=== PATIENT | female | born 1950 | race Caucasian/White ===

== ENCOUNTER 2023-11-30 21:23 | Observation (INO) | payer MEDICARE, SELFPAY ==
[2023-11-30 17:14] VITALS: BP 150/99
[2023-11-30 18:31] VITALS: BP 119/76
--- NOTE | 2023-11-30 19:36 | ED.CVA ---
History of Present Illness
General
Chief Complaint: CVA/TIA Symptoms
Source: patient
Exam Limitations: none
Time Seen by Provider: 11/30/23 18:58
Nursing documentation reviewed up to this point in time: agreed with
Onset of Stroke Symptoms
Onset of symptoms known: Yes
Date of onset of symptoms: 11/28/23
Time pt last seen normal is known: No
Travel History
Have you had any contact with someone who has COVID-19?: No
Do you have any symptoms of coronavirus? Fever > 100 degrees, chills, cough, shortness of breath, sore throat, loss of taste or smell, muscle aches, or headache?: No
History of Present Illness
History of Present Illness:
The patient is a pleasant 73-year-old female with a past medical history of high blood pressure and high cholesterol. Patient reports she is here because she is very worried that she is having multiple mini strokes. Patient reports that 13 days
ago, she had sudden onset of numbness of her leg and foot. During that time she also felt lightheaded and short of breath. Patient reports that the episode went away completely. However, 2 days ago, she reports that she was driving home from [facility]
[place] and developed similar symptoms such as lightheadedness, shortness of breath, and had numbness in her left arm. Patient reports she also had a weird sensation in her mouth and tongue. Patient reports that she was able to drive herself to an
emergency department in [place]. In the emergency department, she underwent lab work including 2 troponins that came back normal. In addition, she had a CT head which showed chronic ischemia in the brain. Patient reports that she tried to get
in touch with her doctor to set up an MRI and carotid ultrasound but was unable to do so. Patient is extremely nervous that she is going to keep having strokes. The patient denies any current symptoms such as weakness, numbness, vision changes,
shortness of breath or lightheadedness.
Review of Systems
Review of Systems
Allergies reviewed?: Yes
All Other Systems: ROS reviewed and negative except as documented in HPI and ROS
Constitutional: Reports no symptoms
EENT: Reports no symptoms
Respiratory: Reports trouble breathing
Cardiac: Reports no symptoms
ABD/GI: Reports no symptoms
: Reports no symptoms
Musculoskeletal: Reports no symptoms
Skin: Reports no symptoms
Neurological: Reports dizzy and numbness
Endocrine: Reports no symptoms
Hematologic/Lymphatic: Reports no symptoms
Psychiatric: Reports no symptoms
Phy Exam
Physical Exam
Physical Exam:
Physical Exam
General: no apparent distress, not acutely ill
Neck: supple. no meningeal signs. normal posterior pharynx
Heart: s1/s2 regular rate and rhythm, no murmur. equal radial pulses.
Lungs: no acute respiratory distress. clear bilaterally
Abdomen: normal bowel sounds. not tender. no CVAT
Neuro: alert and oriented. no focal neurological deficits. Extraocular muscles intact. 5 out of 5 strength in all extremities. No drift. Cranial nerves equal and symmetric bilaterally
Skin: no rash
Psychiatric: well kept. interactive and cooperative
Extremities: no edema. no calf tenderness. negative homans. good distal pulses
Course
Orders/Labs/Results
Orders:
Orders
11/30/23 19:36
Electrocardiogram (*1) Urgent
Reason for Study: TIA/Stroke
EKG- Treatment ONCE
11/30/23 20:10
Complete Blood Count/With Diff Urgent
Comprehensive Metabolic Panel Urgent
11/30/23 20:50
CT Head W/o Iv Contrast Urgent
Comment:
Reason For Exam: left arm numbness
11/30/23 20:53
Admit/Transfer Patient As Directed
Co-Sign Provider:
Level of Care: Observation services
Assign to:: Telemetry
Physician / Group: Dickson
Diagnosis: Recurrent Left Sided Numbness
Reason for Telemetry: CVA/TIA
Date to Stop Telemetry: 12/03/23
Time to Stop Telemetry: 11:00
Code Status As Directed
Resuscitation Status: Full Code
11/30/23 22:00
Flush (0.9% Sodium Chloride) [Flush (Nss)] See Dose Instructions IV PER PROTOCOL
11/30/23 22:28
Acetaminophen [Tylenol/Feverall] 650 mg RECTAL Q4HPRN PRN
Acetaminophen [Tylenol] 650 mg PO Q4HPRN PRN
11/30/23 22:28
Case Management Consult ONCE
Case Management Consult: Discharge Planning
Comment: stroke/tia
DIETARY CONSULT Routine
Reason for Consult: stroke/TIA
On Site Coordinator Routine
MA [place] Routine
Comment:
Reason For Exam: stroke/TIA
Recent pill cam endoscopy?: No
MA Neck With Contrast Routine
Comment:
Reason For Exam: stroke/TIA
Recent pill cam endoscopy?: No
MR Brain Without Contrast Routine
Comment:
Reason For Exam: stroke/TIA
Recent pill cam endoscopy?: No
Activity As Directed
Activity Level: Out of Bed-Early Mobility
NIH Stroke Scale As Directed
Directions: Per protocol
Comment: every shift and with any change in condition or mental status
Neurological Checks As Directed
Frequency: q4h
Additional Instructions:: q4h x 24h upon admission to the floor, then qshift & with any change in condition
and mental status
Patient Education As Directed
Type: Stroke education packet
Comment: provide to patient and family
Pneumatic Compression Sleeves As Directed
Type: Knee high
Vital Signs As Directed
Frequency: Per unit guidelines
Ot Eval And Treat Routine
Pt Eval And Treat Routine
Activity Level: Out of Bed-Early Mobility
Speech Therapy Eval & Treat Routine
DX Deep Vein Thrombosis Video Routine
12/01/23 06:00
Basic Metabolic Panel IN AM
Cardiovascular Evaluation IN AM
Complete Blood Count/No Diff IN AM
Glycohemoglobin (HgbA1c) IN AM
Magnesium IN AM
12/01/23 08:00
Amlodipine [Norvasc] 5 mg PO DAILY
Aspirin Low Dose EC [Aspir Low (Enteric Coated)] 81 mg PO DAILY
Clopidogrel Bisulfate [Plavix] 75 mg PO DAILY
Lisinopril [Zestril] 20 mg PO BID
12/01/23 18:00
Atorvastatin [Lipitor] 40 mg PO QPM
12/03/23 11:00
DC Protocol for Telemetry ONCE
Abnormal Lab Results
11/30/23
20:10
MCH 32.7 H pg
(27.0-31.0)
Monocytes % 9.6 H %
(1.7-9.3)
11/30/23 20:10
11/30/23 20:10
Vital Signs
Initial and Last Documented VS:
Initial Vital Signs
Temp Pulse Resp BP Pulse Ox
98.1 F 82 20 150/99 98
11/30/23 17:14 11/30/23 17:14 11/30/23 17:14 11/30/23 17:14 11/30/23 17:14
Last Documented Vital Signs
Temp Pulse Resp BP Pulse Ox
97.7 F 76 20 145/74 94
11/30/23 22:36 11/30/23 22:36 11/30/23 22:36 11/30/23 22:36 11/30/23 22:36
MDM/Problems Addressed
Differential Diagnosis Includes:
TIA, cardiac arrhythmia, anemia, orthostatic hypotension
MDM/Problems Addressed:
Patient presents with intermittent episodes of numbness, shortness of breath and lightheadedness
Chronic conditions affecting care:
Given patient has a history of high blood pressure and high cholesterol, she is at increased risk of having a stroke or TIA
Chronic conditions affecting care: HTN
Acute Exacerbation and/or Progression of Chronic Illness:
Patient is acutely hypertensive
Acute Exacerbation and/or Progression of Chronic Illness: HTN
*Pulse Oximetry
Patient hypoxic: no
*EKG
Interpreted by ED Provider?: Yes
Interpretation: abnormal
Comparison EKG: no comparison EKG present
Rate: normal
Rhythm: sinus
[place]: normal axis
Interval: normal interval
QRS Pattern: normal QRS
Ischemia: non-specific ST changes
*[employer] Lay Up Worker Interpretation
Rate: normal
Interpretation: normal
Rhythm: sinus
*Critical Care Note
Total Time (30-74mins, 75-104mins- exclusive of procedures): Not Applicable
ED Attending Note
-
Portions of this chart may have been created with voice recognition software.� Occasional wrong word or��sound alike� substitutions may have occurred due to the inherent limitations of voice recognition software.
Discharge Plan
Departure
Patient Disposition: Admit
Date of Disposition: 11/30/23
Time of Disposition: 19:41
Admit to: Telemetry
Presentation/result/management discussed w/ accepting MD/DO: Hospitalist
Patient with high blood pressure during this ER visit?: Yes
Condition: Good
Covid-19: Not Applicable
Discharge Problem:
TIA (transient ischemic attack)
Interventions
Interventions:
*Risk Screen - Suicide Last Done: 11/30/23 19:58
*General Assessment Last Done: 11/30/23 19:58
*Neglect/Abuse Screening Last Done: 11/30/23 19:58
ED- Fall Risk Assessment Last Done: 11/30/23 22:12
*ED COVID-19 Vaccine History Last Done: 11/30/23 19:58
*Nursing Disposition Last Done: 11/30/23 22:12
ED- Pulmonary Assessment Last Done: 11/30/23 19:56
ED- Neurological Assessment Last Done: 11/30/23 21:51
ED- Cardiac Assessment Last Done: 11/30/23 19:56
ED Swallowing Screen Last Done: 11/30/23 21:51
Discharge Date and Time
Discharge Date/Time: 11/30/23 22:30
[2023-11-30 20:21] LABS: % Eosinophils 2.7 % (0-6); % Immature Granulocytes 0.2 % (0-0.5); % Monocytes 9.6 % (1.7-9.3); % Neutrophils 48.5 % (42.2-75.2); Absolute Basophils 0.1 10^3/uL (0-0.2); Absolute Eosinophils 0.1 10^3/uL (0-0.7); Absolute Monocytes 0.5 10^3/uL (0.1-0.6); Absolute Neutrophils 2.5 10^3/uL (1.4-6.5); Hematocrit 41.4 % (37.0-47.0); Mean Corp Hgb Conc. 33.8 g/dL (33.0-37.0); Mean Corpuscular Hgb 32.7 pg (27.0-31.0); Mean Corpuscular Volume 96.7 fL (81.0-99.0); Mean Platelet Volume 9.5 fL (7.4-10.4); Nucleated Red Blood Cells % 0 %; Platelet Count 216 10^3/uL (130-400); Red Blood Cell Count 4.28 10^6/uL (4.20-5.40); Red Cell Dist. Width 12.6 % (11.5-14.5); White Blood Cell Count 5.2 10^3/uL (4.8-10.8)
[2023-11-30 20:31] LABS: ALT (SGPT) 17 U/L (0-35); AST (SGOT) 24 U/L (14-36); Albumin 4.1 g/dl (3.5-5.0); Alkaline Phosphatase 93 U/L (38-126); Blood Urea Nitrogen 13 mg/dl (7-17); Calcium 9.3 mg/dl (8.4-10.2); Carbon Dioxide 26 mmol/L (22-30); Chloride 104 mmol/L (98-107); Glucose 95 mg/dl (70-99); Potassium 3.8 mmol/L (3.5-5.1); Sodium 138 mmol/L (135-145); Total Bilirubin 0.5 mg/dl (0.2-1.3); Total Protein 6.6 g/dl (6.3-8.2); eGFR > 60.00
--- NOTE | 2023-11-30 21:15 | HPS.HSE ---
Addendum entered and electronically signed by Anatoly Forman DO 11/30/23 22:52:
Patient seen and examined independently. Agree with findings and plan as set forth by Verónica Walton PA-C.
Patient is a 73y F with PMH significant for hypertension who presents to ED for evaluation of transient numbness / tingling over the past month. Her initial episode was on 11/16 and her most recent episode was 11/27. At that time patient presented
to an ED in [place] for evaluation. CT head was done at that time and her symptoms resolved. She was advised to follow-up with her PCP and complete outpatient work-up including MRI and CUS. Patient was started on ASA 81mg daily.
She has had no additional symptoms since that time. Unfortunately, she has not been able to get in contact with her PCP or schedule these recommended tests.
Concerned with possible recurrent symptoms and need for prompt testing, patient presented to the ED for evaluation.
Ass:
Numbness / Tingling
Possible CVA / TIA
Benign Hypertension
Plan:
Observe overnight for further evaluation and treatment.
Add Plavix and statin. Continue ASA.
MRI brain in the AM.
Neuro evaluation.
Consider additional testing if warranted.
Monitor for any new / recurrent symptoms.
Original Note:
Family Physician
-
Family Physician: Tai Moss
Chief Complaint
-
Left Sided Numbness
History of Present Illness
This is a 73 year old female with past medical history of hypertension who presents to the emergency department with numbness and tingling on her left side. The patient reports an episode of left leg numbness, tingling, and left foot swelling on
11/17/23 that resolved spontaneously after about an hour. She also reports another episode on 11/28/23 of left arm numbness and tingling, lightheadedness, shortness of breath, and palpitations prompting her to present to an emergency department in [facility]
[place] where she had imaging including ultrasound of the left leg, chest x-ray, and head CT. Patient notes she was discharged after being ruled out for an PR, and had a CT scan that was negative intracranial hemorrhage. She was told she had 2 TIAs
and to start 81mg Aspirin daily. She was instructed to get an MRI and carotid ultrasound but was unable to get in touch with her primary care, prompting her to present to the emergency department today. The patient denies numbness, tingling,
weakness, speech difficulties, visual changes, chest pain, and palpitations at this time.
Medical History
Past Medical History
Past Medical History: Reports Other
Additional Past Medical History:
Essential Hypertension
Glaucoma
Past Surgical History: Reports
Social History
Tobacco: Non-smoker
Alcohol: Occasional
Personal:
Living: With Family
Family History
Family History: Not pertinent
Allergies / Home Medications
Allergies reflects when Allergies were last updated in [facility].
Home Medications with original date entered in [facility]
Allergy/Medication List:
Allergies
Allergy/AdvReac Type Severity Reaction Status Date / Time
Cephalosporins Allergy Unknown Unverified 11/30/23 17:21
erythromycin base Allergy Unknown Unverified 11/30/23 17:21
penicillin G Allergy Unknown Unverified 11/30/23 17:21
Penicillins Allergy Unknown Unverified 11/30/23 17:21
Home Medications
amlodipine 5 mg tablet 5 mg PO DAILY 11/30/23
aspirin 81 mg tablet,delayed release 81 mg PO DAILY 11/30/23
calcium carbonate 500 mg PO DAILY 11/30/23
cholecalciferol (vitamin D3) 25 mcg (1,000 unit) tablet 25 mcg PO DAILY 11/30/23
coenzyme Q10 100 mg capsule (Co Q-10) 100 mg PO DAILY 11/30/23
dorzolamide-timolol (PF) 2 %-0.5 % eye drops in a dropperette 1 drp BOTH EYES BID 11/30/23
latanoprost 0.005 % eye drops 1 drp RIGHT EYE HS 11/30/23
lisinopril 20 mg tablet 20 mg PO BID 11/30/23
multivitamin 1 tab PO DAILY 11/30/23
omega 4-[id number]-mrv-fish oil 1,000 mg (120 mg-180 mg) capsule (Fish Oil) 1 cap PO DAILY 11/30/23
vitamin B complex 1 tab PO DAILY 11/30/23
Review of Systems
-
A 12 point ROS was completed and negative except as noted: Yes
Constitutional: Denies Fever or Chills
Respiratory: Denies Cough or Trouble Breathing
Cardiac: Denies Chest Pain or Palpitations
Physical Exam
Vital Signs
Vital Signs
Temp Pulse Resp BP Pulse Ox
98.1 F 73 17 119/76 97
11/30/23 17:14 11/30/23 19:45 11/30/23 19:45 11/30/23 18:31 11/30/23 19:56
Physical Exam
General: Comfortable and Conversant
HEENT: Anicteric and Moist mucous membranes
Respiratory: Clear and Non Labored Respirations
Cardiac: S1/S2 and Regular Rhythm
GI: Soft and Non Tender
Musculoskeletal: No Clubbing, No Cyanosis and No Edema
Skin: Warm and Dry
Neuro: Awake, Alert, Oriented and Nonfocal/grossly intact
Psych: Anxious
Laboratory Results
-
11/30/23 20:10
11/30/23 20:10
Laboratory Results
Total Bilirubin 0.5 mg/dl (0.2-1.3) 11/30/23 20:10
AST 24 U/L (14-36) 11/30/23 20:10
ALT 17 U/L (0-35) 11/30/23 20:10
Alkaline Phosphatase 93 U/L (38-126) 11/30/23 20:10
Data Reviewed
-
Lab Data: Labs Reviewed by me
Old Records: Reviewed
Impression/Plan
-
Recurrent Left Sided Numbness, possible TIA
-Consult Neurology
-Monitor on Telemetry
-Continue Aspirin and Plavix
-Check Brain MRI with Head/Neck MRA
-Check Lipid Panel and HgbA1c
Essential Hypertension
-Continue amlodipine and lisinopril
Hyperlipidemia
-Start Atorvastatin
DVT proph: SCDs
Code Status: Full Code
[2023-11-30 22:36] VITALS: BP 145/74
[2023-11-30 22:37] VITALS: BMI 29.0
--- NOTE | 2023-11-30 23:00 | PTCARENOTE ---
no delay received. aaox3. [facility] o. vss. nsr. plan of care updated. call parrish in reach. will monitor.
[2023-12-01 03:43] VITALS: BP 114/73
[2023-12-01 06:28] LABS: Hematocrit 41.6 % (37.0-47.0); Hemoglobin 13.9 g/dL (12.0-16.0); Mean Corp Hgb Conc. 33.4 g/dL (33.0-37.0); Mean Corpuscular Hgb 32.6 pg (27.0-31.0); Mean Corpuscular Volume 97.4 fL (81.0-99.0); Mean Platelet Volume 9.5 fL (7.4-10.4); Platelet Count 211 10^3/uL (130-400); Red Blood Cell Count 4.27 10^6/uL (4.20-5.40); Red Cell Dist. Width 12.5 % (11.5-14.5); White Blood Cell Count 5.3 10^3/uL (4.8-10.8)
[2023-12-01 07:41] LABS: Blood Urea Nitrogen 12 mg/dl (7-17); Calcium 9.2 mg/dl (8.4-10.2); Carbon Dioxide 23 mmol/L (22-30); Chloride 108 mmol/L (98-107); Estimated Creatinine Clearance 92 ml/min; Glucose 92 mg/dl (70-99); HDL Cholesterol 52 mg/dl; LDL Cholesterol, Calculated 190 mg/dl; Magnesium 1.9 mg/dl (1.6-2.3); Potassium 3.6 mmol/L (3.5-5.1); Sodium 140 mmol/L (135-145); Total Cholesterol 305 mg/dl (50-199); Triglyceride 315 mg/dl (10-149); Very Low Density Lipoprotein 63 mg/dl (0-30); eGFR > 60.00
[2023-12-01] MEDS: NORVASC 5 MG PO (07:46)
[2023-12-01] MEDS: PLAVIX 75 MG PO (07:46)
[2023-12-01] MEDS: ZESTRIL 20 MG PO (07:46)
[2023-12-01] MEDS: ASPIR LOW (ENTERIC COATED) 81 MG PO (07:46)
[2023-12-01 07:59] VITALS: BP 122/74
--- NOTE | 2023-12-01 08:37 | CON.NEURO4 ---
Addendum entered and electronically signed by Jackson Prasad MD 12/01/23 14:26:
MRI brain result reviewed there is no acute infarct, age-appropriate mild atrophy, very minimal ischemic white matter disease.
MRA shows a signal abnormality in basilar artery along with suggestion of left posterior cerebral artery stenosis.
No significant carotid disease
CTA demonstrates that there is no concerning basilar artery pathology and instead there is a benign basilar artery calcification and no significant plaque or stenosis in the left posterior cerebral artery.
Assessment:
Patient's brain MRI and CT angiogram are very reassuring, no signs of severe vascular disease in any of the blood vessels of the head and neck and the brain MRI does not show significant vascular burden.
Patient's description of her event while in the car producing left arm paresthesia along with lightheadedness like she was going to pass out along with dyspnea and chest discomfort are quite atypical for TIA but TIA not entirely ruled out.
I do not feel that her previous episode of left foot edema associated paresthesia at all represents a TIA.
Recommendations
-Follow-up with her pound keeper for consideration of a stress test and I discussed with her to monitor if she gets any repeated symptoms that she had in the car especially if she experiences them with exertion
-DAPT therapy aspirin and clopidogrel for total of 21 days and then stop the clopidogrel and continue on aspirin 81 mg long-term
-Restarting atorvastatin 40 mg daily and discussed the importance of diet and exercise modifications
-One-time follow-up with neurology in 1 to 2 months should be acceptable
-No barriers to discharge
Original Note:
Consultation - Neurology 4
-
CONSULTING PHYSICIAN: Abe Prasad
REFERRING PHYSICIAN: Hospitalist
DICTATED BY: Abe Prasad
DATE/TIME OF REQUEST: 12/01/23
DATE/TIME OF CONSULTATION: 12/01/23
Reason for Consultation: Constellation of symptoms Tuesday, and 1.5 weeks ago potentially TIA or other event
History of Present Illness:
Patient is a right-handed 73-year-old woman with a past ministry of hypertension and glaucoma presents to hospital due to symptoms of presyncope, dyspnea and chest discomfort and left hand paresthesia on 11/27 for which she did have evaluation in
emergency department in [place] but was felt she needed further investigation into possible TIA and workup for this. She had also had an episode around 12 days ago of some left foot paresthesias.
11 to 12 days ago days ago patient noticed that she had had some left foot numbness that eventually resolved and she saw that she did have obvious edema in her left foot which was unusual. She did not notice any rash or discoloration or obvious
joint swelling. Reports that she can have bilateral swelling of the feet sometimes.
Patient had been driving back from staying in the [facility] area on 11/27 when she had a unusual feeling of lightheadedness feeling like she was going to pass out, dyspnea as well as chest heaviness, and left forearm paresthesia. Symptoms
in total seem to last a little bit more than an hour in less than 2 to 3 hours. She did not have any speech difficulty vision change or loss of consciousness. She had evaluation in ED [place] apartment with ruling out of [place] with negative troponins as
well as CT head noncontrast with no severe acute abnormalities. There was concern for potential TIA and was recommended to start aspirin 81 mg daily which she has been taking.
Patient denies any recent head or neck trauma or any chronic issues with neck or spine. No history of TIA or stroke or cardiac issues. She relates a history of migraine headaches in her younger years usually associated with her menstrual cycle
where she would have nausea mild photophobia and significant headache.
No recent stressors or major medical issues. She did exert herself a lot while she was in [place] with some bike rides and exercise in the hot weather.
Past Medical History: Hypertension, Glaucoma
Surgical History: C section for uterine fibroids
Family History: Non-contributory
Social History: , lives with her , has 3 adult daughters, no tobacco, social rare alcohol, manages a golf course.
Review of Symptoms:
Patient denies any fever, headache, chest pain, shortness of breath, GI or symptoms.
Physical Exam:
Well-appearing mildly anxious elderly woman appears her stated age, no signs of head or neck trauma oropharynx is clear neck supple full range of motion no tenderness or abnormality of cervical spine to palpation. Heart rate regular breathing
unlabored breath sounds present bilaterally no wheezing, abdomen soft nontender no lower extremity edema or rash feet appear normal.
Neurologic Examination:
The patient is awake, alert and oriented x 3. (He/She) is able to follow commands and answer questions appropriately. There is no aphasia or dysarthria. On cranial nerve assessment, pupils are 3 mm bilateral, round and reactive to light and
accommodation. Visual burt are full. Extraocular movements are intact. Facial sensations are intact and bilaterally symmetrical, there is no facial asymmetry. Hearing is intact bilaterally to normal conversation volume. Tongue palate and uvula
are midline. Sternocleidomastoid strengths are full bilaterally. Motor strengths are 5/5 bilateral upper and lower extremities on medical research Kashia scale. There is no drift or involuntary movement noted. Deep tendon reflexes are 2+ bilateral
upper and lower extremities and Babinski is absent bilaterally. Light touch normal throughout and symmetric on all limbs. Coordination is intact by finger to nose bilaterally.
Neuro Imaging: CT head unremarkable, no acute or chronic infarcts seen, no hemorrhage, no masses, mild age appropriate atrophy, no hydrocephalus
Impressions
1. Left arm paresthesia is atypical for TIA given it was accompanied by presyncope as well as chest heaviness and dyspnea, although not able to entirely exclude TIA. Other possible etiologies could be cardiac arrhythmia or angina, presyncope,
anxiety. Previous left foot paresthesia was accompanied by edema/feel this would be unlikely to be TIA. Normal neurologic exam now.
2. Treated chronic hypertension
Recommendations:
1. Placed on aspirin and clopidogrel therapy out of an abundance of precaution for 21 days and then continue on aspirin 81 mg daily thereafter
2. Continue on cardiac telemetry and will check transthoracic echocardiogram, consideration for outpatient stress testing patient does have an existing pound keeper
3. Check MRI of the brain and MRA of the head and
4. Check lipid panel and hemoglobin A1c
5. Supportive care otherwise
Discussed patient care with: Patient and Dr Torrez
--- NOTE | 2023-12-01 08:50 | PTOTSP ---
Speech Language Pathology
Pt seen for speech and cognitive-linguistic evaluations. No dysarthria noted. Cognitive-linguistic status evaluated via the Caldwell Cognitive Assessment (MOCA), version 8.2. Pt with a score of 28/30 where normal range is 26-30.
Pt also seen for clinical bedside swallow evaluation as pt reported difficulty swallowing when she presented to ED in [place] on 11/27. She denied any difficulty since that time. P.O. trials of regular solids and thin liquids provided. Adequate
mastication, bolus formation, and A-P transit noted with no oral residue. No overt signs of aspiration.
Recommend:
(1) Continue regular solids/thin liquids
(2) General aspiration precautions
(3) Meds as tolerated
(4) WORM PACKER to sign off. Please reconsult as indicated
[2023-12-01 09:11] LABS: NT-proBNP 77.2 pg/ml; Troponin I < 0.012 ng/ml
[2023-12-01 09:39] LABS: Glycohemoglobin (HgbA1c) 5.4 % (4.0-5.6)
[2023-12-01 09:45] VITALS: BP 130/92; PULSE 80
[2023-12-01 09:50] VITALS: BP 130/92; PULSE 80
--- NOTE | 2023-12-01 10:00 | PTOTSP ---
Pt currently asymptomatic and is independent with ambulation without need for any assistive devices. Slight LUE dysmetria noted. No PT needs were identified at this time. Will sign off. Reconsult if any new symptoms occur inhouse.
[2023-12-01 11:25] VITALS: BP 130/82
--- NOTE | 2023-12-01 12:15 | CM ---
Met with pt at bedside
Admitted for recurrent left sided numbness
Lives with her in a one story home in a [place] community. No steps to enter home, FF set-up
Independent, driving
DME - none
SNF/HH - denies past hx
Has ride at d/c
PCP - Dr Nicole Moss
Pharm - [facility]
Seen by PT/OT - no skilled need noted
CM will continue to follow for d/c needs
Plan - anticipate home no needs
--- NOTE | 2023-12-01 13:11 | W.PN.HOSP.TC ---
Addendum entered and electronically signed by Shan Chavez MD 12/01/23 15:02:
More than 30 minutes spent in discharge including
Final examination of the patient
Summarizing hospital stay
Instructions for continuing care to all relevant caregivers
Preparation of discharge records, prescriptions, and referral forms
Total time spent (in minutes): 41
Original Note:
Today's Communication/Plan
-
DAPT
CTA
Follow neuro checks
Assessment / Plan
Assessment / Plan
Assessment:
Recurrent Left Sided Numbness, possible TIA
- MRI: Scattered small cerebral white matter lesions, probably related to chronic small vessel ischemia
- MRA neck: 3.5 mm apparent focal outpouching of the cervical left internal carotid artery. This is located 3.2 cm above the carotid bifurcation. This is either a small aneurysm or possibly focally tortuosity of the vessel. There is a stenosis of
approximately 90% at the origin of left posterior cerebral artery
- MRA head: There is a stenosis of approximately 90% at the origin of left posterior cerebral artery. There is adequate flow signal distal to this within the left posterior cerebral artery. There is a 2 mm diameter partially occlusive signal void in
the inferior aspect of the basilar artery. This could represent partially occlusive thrombus or embolus. It could instead be related to ulcerated atherosclerotic plaque. Normal flow signal above this level in the basilar artery.
- follow up CTA
- Echo: LV 75%, mild MR, TR
- continue ASA/Plavix x 3 months
- continue Statin; LDL 190
- A1c: 5.4%
- PT/OT/ST
Chest heaviness, subjective dyspnea and pre-syncope
- check orthostatics
- Echo unremarkable
- would benefit from OP applications programmer and stress test, will d/w patient.
Essential Hypertension
- continue amlodipine and lisinopril
Hyperlipidemia
- continue Statin; LDL 190
DVT proph: SCDs
Code Status: Full Code
Anticipated Discharge: Within 24 hours
Subjective/Interval History
-
Date of Service: December 01, 2023
no new complaints currently
s/p MRI showing no acute infarct
Objective Data
-
Labs:
Laboratory Results
12/01/23
05:42
WBC 5.3
Hgb 13.9
Hct 41.6
Plt Count 211
Sodium 140
Potassium 3.6
Chloride 108 H
Carbon Dioxide 23
BUN 12
Creatinine 0.6
Glucose 92
Calcium 9.2
Vital Signs:
Vital Signs
Temp Pulse Resp BP Pulse Ox
98.4 F 79 16 130/82 99
12/01/23 11:25 12/01/23 11:25 12/01/23 11:25 12/01/23 11:25 12/01/23 11:25
Physical Exam
-
General: No Apparent Distress
HEENT: Normocephalic and Atraumatic
Respiratory: Negative Wheezes
Cardiac: Regular Rhythm and S1/S2
GI: Soft
Genito-urinary: No Costovertebral Tender
Neuro: AO x 3
Psych: Calm
Data Reviewed
-
Total Time Spent with Patient (in minutes): 42
Labs: Labs Reviewed by me
--- NOTE | 2023-12-01 15:02 | W.DS.TRANS ---
DC Summary - Orthopedic Tech
-
Discharge Instructions:
Discharge Diagnosis/Procedures TIA, vague chest pain, dyspnea requiring Cardiac
workup
Diet Low Cholesterol
Activity As tolerated
Bathing Restrictions None
Instructions:
Stand-Alone Forms:
Changes to Home Medications: No
Discharge Medications:
DC Medications w/original date entered in [facility]
amlodipine 5 mg tablet 5 mg PO DAILY Blood Pressure 11/30/23
aspirin 81 mg tablet,delayed release 81 mg PO DAILY Blood Clot Prevention/Tx 11/30/23
calcium carbonate 500 mg PO DAILY Supplement 11/30/23
cholecalciferol (vitamin D3) 25 mcg (1,000 unit) tablet 25 mcg PO DAILY Supplement 11/30/23
coenzyme Q10 100 mg capsule (Co Q-10) 100 mg PO DAILY Supplement 11/30/23
dorzolamide-timolol (PF) 2 %-0.5 % eye drops in a dropperette 1 drp BOTH EYES BID Eye Condition 11/30/23
latanoprost 0.005 % eye drops 1 drp RIGHT EYE HS Eye Condition 11/30/23
lisinopril 20 mg tablet 20 mg PO BID Blood Pressure 11/30/23
multivitamin 1 tab PO DAILY Supplement 11/30/23
omega 3-qam-fhl-fish oil 1,000 mg (120 mg-180 mg) capsule (Fish Oil) 1 cap PO DAILY Supplement 11/30/23
vitamin B complex 1 tab PO DAILY Supplement 11/30/23
atorvastatin 40 mg tablet 40 mg PO QPM #30 tabs 12/01/23
clopidogrel 75 mg tablet 75 mg PO DAILY #21 tabs 12/01/23
Home Medication Changes
Pending Results: No
Total time spent discharging patient (in min): 41
[2023-12-01 15:36] VITALS: BP 121/80
== END 2023-12-01 16:42 | disposition home or self-care (01) ==
LOC: 3 WEST ACU 21:23
PROVIDERS: Physician Assistant Medical; ADMITTING PHYSICIAN Hospitalist; ATTENDING PHYSICIAN Internal Medicine; EMERGENCY PHYSICIAN Emergency Medicine; FAMILY PHYSICIAN Internal Medicine; OTHER PHYSICIAN Student in an Organized Health Care Education/Training Program
DX: G45.9 Transient cerebral ischemic attack, unspecified (principal); R07.9 Chest pain, unspecified; R20.0 Anesthesia of skin; E78.00 Pure hypercholesterolemia, unspecified; I10 Essential (primary) hypertension; R06.02 Shortness of breath; R42 Dizziness and giddiness; I67.82 Cerebral ischemia; R06.00 Dyspnea, unspecified; E78.5 Hyperlipidemia, unspecified; J01.00 Acute maxillary sinusitis, unspecified; R20.2 Paresthesia of skin; Z88.1 Allergy status to other antibiotic agents; Z88.0 Allergy status to penicillin
CPT/HCPCS: 70450; 70496; 70544; 70548; 70551; 80048; 80053; 80061; 83036; 83735; 83880; 84484; 85025; 85027; 92523; 92610; 93005; 93306; 97162; 97167; 99284; A9585; G0378; Q9967

== ENCOUNTER 2024-02-15 17:28 | Emergency (ER) | payer OTHER, SELFPAY ==
[2024-02-15 17:50] VITALS: BP 126/97
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
[2024-02-15 20:26] VITALS: BP 128/81
== END 2024-02-15 20:46 | disposition home or self-care (01) ==
LOC: EMR 17:28
PROVIDERS: EMERGENCY PHYSICIAN Emergency Medicine; FAMILY PHYSICIAN Nurse Practitioner Family
DX: S13.4XXA Sprain of ligaments of cervical spine, initial encounter (principal); V89.2XXA Person injured in unspecified motor-vehicle accident, traffic, initial encounter; Y92.410 Unspecified street and highway as the place of occurrence of the external cause; E78.00 Pure hypercholesterolemia, unspecified; I10 Essential (primary) hypertension; Z86.73 Personal history of transient ischemic attack (TIA), and cerebral infarction without residual deficits
CPT/HCPCS: 99284; 70450; 72125

== ENCOUNTER 2025-04-15 06:16 | Day surgery (SDC) | payer MEDICARE, SELFPAY | END 2025-04-15 10:10 | disposition home or self-care (01) | LOC: GI 06:16 | PROVIDERS: ATTENDING PHYSICIAN Internal Medicine | DX: Z12.11 Encounter for screening for malignant neoplasm of colon (principal); K57.30 Diverticulosis of large intestine without perforation or abscess without bleeding; K64.8 Other hemorrhoids; Z86.0100 Personal history of colon polyps, unspecified | CPT/HCPCS: G0105 ==